=== PATIENT | male | born 1955 | race Caucasian/White ===

== ENCOUNTER 2020-03-08 15:20 | Observation (INO) | payer MEDICARE, OTHER ==
[~2020-03-08] VITALS: Ht 182.9 cm; Wt 90.9 kg
[~2020-03-08 15:20] MED LIST: ALBU18HF2 INH; ASCO-134 PO; FERR325T28 PO; FLO0.4C PO; MONT10TA26 PO; PANT40TA4 PO; TRAM50TA2 PO
[2020-03-08 16:00] LABS: BASOPHILS # (AUTO) 0.1 X10'3 (0-0.2); BASOPHILS % (AUTO) 0.9 % (0-1); EOSINOPHILS # (AUTO) 0.3 X10'3 (0-0.9); EOSINOPHILS % (AUTO) 3.3 % (0-6); HEMATOCRIT 27.4 % (42.0-52.0); HEMOGLOBIN 8.4 g/dl (14.0-17.9); LYMPHOCYTES # (AUTO) 2.1 X10'3 (1.1-4.8); LYMPHOCYTES % (AUTO) 19.8 % (21-51); MEAN CORPUSCULAR HEMOGLOBIN 21.7 PG (27.0-31.0); MEAN CORPUSCULAR HGB CONC 30.6 g/dL (33.0-36.5); MEAN CORPUSCULAR VOLUME 71.1 FL (78-98); MEAN PLATELET VOLUME 6.4 FL (7.4-10.4); MONOCYTES # (AUTO) 1.3 X10'3 (0-0.9); MONOCYTES % (AUTO) 12.3 % (2-12); NEUTROPHILS # (AUTO) 6.7 X10'3 (1.8-7.7); NEUTROPHILS % (AUTO) 63.7 % (42-75); PLATELET COUNT 295 X10'3 (140-440); RED BLOOD COUNT 3.85 X10'6 (4.70-6.10); RED CELL DISTRIBUTION WIDTH 20.8 % (11.5-14.5); WHITE BLOOD COUNT 10.5 X10'3 (4.5-11.0)
[2020-03-08] MEDS ORDERED: nitroGLYCERIN 0.4mg SUBLingual tab SL PRN ×2 (16:10→19:40)
[2020-03-08] MEDS ORDERED: mag hydrox/Alum hydrox/simeth 30ml oral suspension PO ONE (16:10)
[2020-03-08] MEDS ORDERED: LIDOcaine Viscous 15ml cup MM ONE (16:10)
[2020-03-08] MEDS ORDERED: famotidine 20mg tablet PO ONE (16:10)
[2020-03-08 16:26] LABS: ALANINE AMINOTRANSFERASE 30 U/L (12-78); ALBUMIN 3.5 G/DL (3.4-5.0); ALBUMIN/GLOBULIN RATIO 1.2 (1.1-1.5); ALKALINE PHOSPHATASE 77 IU/L (46-116); ANION GAP 7 (8-16); ASPARTATE AMINO TRANSFERASE 16 U/L (10-37); BILIRUBIN,TOTAL 0.6 MG/DL (0.1-1.0); BLOOD UREA NITROGEN 18 MG/DL (7-18); BUN/CREATININE RATIO 17.1 (5.4-32.0); CALCIUM 9.1 MG/DL (8.5-10.1); CHLORIDE 108 MMOL/L (99-107); CREATININE 1.05 MG/DL (0.60-1.10); GLUCOSE 94 MG/DL (70-104); POTASSIUM 3.7 MMOL/L (3.5-5.1); SODIUM 141 MMOL/L (135-145); TOTAL CARBON DIOXIDE 25.6 MMOL/L (24-32); TOTAL PROTEIN 6.5 G/DL (6.4-8.2); eGFR 71 ML/MIN
[2020-03-08] MEDS ORDERED: ondansetron/PF 4mg/2ml inj IV ONE (16:45)
[2020-03-08] MEDS ORDERED: morphine 4 MG/ML inj SYRINge IV ONE ×2 (16:45→17:50)
[2020-03-08] MEDS ORDERED: iohexol 350MG/ML 100ml bottle IV ONE (16:54)
[2020-03-08 17:27] LABS: ANISOCYTOSIS 3+; PLATELET ESTIMATE NORMAL
[2020-03-08 17:30] LABS: HYPOCHROMASIA 3+; MICROCYTOSIS 1+
[2020-03-08 17:31] LABS: POLYCHROMASIA 1+; SCHISTOCYTES FEW
[2020-03-08 17:32] LABS: POIKILOCYTOSIS FEW
[2020-03-08 17:33] LABS: TARGET CELLS FEW
[2020-03-08] MEDS ORDERED: TRAM50TA2 PO (18:22)
[2020-03-08] MEDS ORDERED: ASCO-134 PO (18:22)
[2020-03-08] MEDS ORDERED: PANT-47 PO (18:22)
[2020-03-08] MEDS ORDERED: FERR324T4 PO (18:23)
--- NOTE | 2020-03-08 18:30 | NUR ---
hospitalist DR. Franco at bedside to assess for admission
[2020-03-08] MEDS: normal saline 1000ml 1,000 ML IV SCH ×2 (18:31→20:35)
[2020-03-08] MEDS ORDERED: ondansetron/PF 4mg/2ml inj IV PRN (18:35)
[2020-03-08] MEDS ORDERED: magnesium hydroxide 30ml (MOM) UD suspension PO PRN (18:35)
[2020-03-08] MEDS ORDERED: morphine 2 MG/ML inj. syringe IV PRN ×2 (18:35)
[2020-03-08] MEDS ORDERED: mag hydrox/Alum hydrox/simeth 30ml oral suspension PO PRN (18:35)
[2020-03-08] MEDS ORDERED: acetaminophen 325mg tablet PO PRN (18:35)
--- NOTE | 2020-03-08 19:00 | NUR ---
Patient in room PCU 3013. I have received report from EDGE MOLDER by telephone and had the opportunity to ask questions and assume patient care.
[2020-03-08 19:30] VITALS: BP 153/82
[2020-03-08] MEDS ORDERED: regadenoson 0.4mg/5ml syringe IV ONE (19:40)
[2020-03-08] MEDS ORDERED: albuterol 2.5 MG/3 ML nebule NEB PRN (19:40)
[2020-03-08] MEDS ORDERED: aminophylline 250mg/10ml inj. IV PRN (19:40)
[2020-03-08] MEDS ORDERED: metoprolol tartrate 1mg/ml inj IV PRN (19:40)
[2020-03-08] MEDS: pantoprazole 40mg Tablet.DR PO SCH (20:34)
[2020-03-08] MEDS: ferrous sulfate 325mg tablet PO SCH (20:34)
[2020-03-08 22:00] VITALS: BP 137/79
[2020-03-09] VITALS (15 sets, daily range): BP systolic 127–157; BP diastolic 71–87
--- NOTE | 2020-03-09 02:47 | NUR ---
Refused 0200 vitals signs check.
[2020-03-09 03:34] LABS: BASOPHILS # (AUTO) 0.1 X10'3 (0-0.2); BASOPHILS % (AUTO) 1.7 % (0-1); EOSINOPHILS # (AUTO) 0.3 X10'3 (0-0.9); HEMATOCRIT 23.4 % (42.0-52.0); HEMOGLOBIN 7.2 g/dl (14.0-17.9); LYMPHOCYTES # (AUTO) 1.7 X10'3 (1.1-4.8); LYMPHOCYTES % (AUTO) 25.2 % (21-51); MEAN CORPUSCULAR HGB CONC 30.7 g/dL (33.0-36.5); MEAN CORPUSCULAR VOLUME 71.8 FL (78-98); MEAN PLATELET VOLUME 6.5 FL (7.4-10.4); MONOCYTES % (AUTO) 14.9 % (2-12); NEUTROPHILS # (AUTO) 3.7 X10'3 (1.8-7.7); NEUTROPHILS % (AUTO) 54.2 % (42-75); PLATELET COUNT 217 X10'3 (140-440); RED BLOOD COUNT 3.26 X10'6 (4.70-6.10); RED CELL DISTRIBUTION WIDTH 20.8 % (11.5-14.5); WHITE BLOOD COUNT 6.7 X10'3 (4.5-11.0)
[2020-03-09 03:48] LABS: ALBUMIN 2.8 G/DL (3.4-5.0); ANION GAP 6 (8-16); BLOOD UREA NITROGEN 17 MG/DL (7-18); BUN/CREATININE RATIO 18.1 (5.4-32.0); CALCIUM 8.2 MG/DL (8.5-10.1); CHLORIDE 109 MMOL/L (99-107); CREATININE 0.94 MG/DL (0.60-1.10); GLUCOSE 92 MG/DL (70-104); POTASSIUM 3.9 MMOL/L (3.5-5.1); SODIUM 141 MMOL/L (135-145); TOTAL CARBON DIOXIDE 25.9 MMOL/L (24-32); eGFR 80 ML/MIN
--- NOTE | 2020-03-09 03:54 | NUR ---
PAGER ID: [phone] MESSAGE: [id number] Tu Valera: Hemoglobin 7.2, would you like to put in a standing order to have blood transfused when under 7? Repeat h/h in 4 hrs.? Teresa KAT [id number]
[2020-03-09 04:11] LABS: PLATELET ESTIMATE NORMAL
[2020-03-09 04:12] LABS: ANISOCYTOSIS 3+; MICROCYTOSIS 1+
[2020-03-09 04:13] LABS: HYPOCHROMASIA 2+
--- NOTE | 2020-03-09 06:16 | NUR ---
Problems reprioritized. Patient report given, questions answered & plan of care reviewed with Lluvia KAT.
--- NOTE | 2020-03-09 06:20 | NUR ---
Patient in room PCU 3013. I have received report from NORTH Alvarez and had the opportunity to ask questions and assume patient care.
--- NOTE | 2020-03-09 07:17 | NUR ---
Selinad Salvador PAGER ID: [phone] MESSAGE: [id number]: Tu Velasquez - Hbg went down from 8.4 to 7.2. Would you like a standing order to transfuse blood at 7.0? Repeat H/H q. 4hrs? -Lluvia [phone]
[2020-03-09] MEDS: pantoprazole 40mg Tablet.DR PO SCH ×2 (07:48→19:45)
[2020-03-09] MEDS: montelukast 10mg tablet PO SCH (07:48)
[2020-03-09] MEDS: ferrous sulfate 325mg tablet PO SCH ×3 (07:48→19:45)
[2020-03-09] MEDS: ascorbic acid 500mg tablet PO SCH (07:49)
[2020-03-09] MEDS: tamsulosin 0.4mg capsule PO SCH (07:49)
--- NOTE | 2020-03-09 10:06 | NUR ---
Pt to stress test
--- NOTE | 2020-03-09 13:23 | NUR ---
Patient in room PCU 3013. I have received report from Lluvia and had the opportunity to ask questions and assume patient care.
--- NOTE | 2020-03-09 13:33 | NUR ---
I have reviewed previous nurse's physical assessment and agree with her findings.
--- NOTE | 2020-03-09 13:45 | NUR ---
Problems reprioritized. Patient report given, questions answered & plan of care reviewed with NORTH Huitron.
[2020-03-09] MEDS: traMADol 50MG tablet PO PRN ×2 (14:12→23:32)
[2020-03-09] MEDS: normal saline 1000ml 1,000 ML IV SCH ×2 (14:46→23:32)
[2020-03-09 16:11] LABS: LIPASE 127 U/L (73-393)
[2020-03-09] MEDS: sucralfate 1gm/10ml UD suspension PO SCH ×2 (17:11→19:45)
--- NOTE | 2020-03-09 18:00 | NUR ---
Patient in room PCU 3013. I have received report from Elana KAT and had the opportunity to ask questions and assume patient care.
--- NOTE | 2020-03-09 18:30 | NUR ---
Problems reprioritized. Patient report given, questions answered & plan of care reviewed with Teresa.
--- NOTE | 2020-03-09 23:19 | NUR ---
Refused vital signs for 2200 and 0200. Patient stated, "I do not want to be woken up, I want to sleep."
[2020-03-10 05:26] LABS: BASOPHILS # (AUTO) 0.2 X10'3 (0-0.2); EOSINOPHILS # (AUTO) 0.3 X10'3 (0-0.9); EOSINOPHILS % (AUTO) 3.9 % (0-6); HEMATOCRIT 27.6 % (42.0-52.0); HEMOGLOBIN 8.6 g/dl (14.0-17.9); LYMPHOCYTES # (AUTO) 1.4 X10'3 (1.1-4.8); LYMPHOCYTES % (AUTO) 18.4 % (21-51); MEAN CORPUSCULAR HEMOGLOBIN 22.7 PG (27.0-31.0); MEAN CORPUSCULAR HGB CONC 31.2 g/dL (33.0-36.5); MEAN CORPUSCULAR VOLUME 72.9 FL (78-98); MEAN PLATELET VOLUME 6.7 FL (7.4-10.4); MONOCYTES % (AUTO) 13.5 % (2-12); NEUTROPHILS # (AUTO) 4.8 X10'3 (1.8-7.7); NEUTROPHILS % (AUTO) 62.2 % (42-75); PLATELET COUNT 223 X10'3 (140-440); RED BLOOD COUNT 3.79 X10'6 (4.70-6.10); RED CELL DISTRIBUTION WIDTH 22.1 % (11.5-14.5); WHITE BLOOD COUNT 7.7 X10'3 (4.5-11.0)
[2020-03-10 05:33] LABS: ALBUMIN 2.8 G/DL (3.4-5.0); ANION GAP 6 (8-16); BLOOD UREA NITROGEN 20 MG/DL (7-18); BUN/CREATININE RATIO 21.1 (5.4-32.0); CALCIUM 8.7 MG/DL (8.5-10.1); CHLORIDE 109 MMOL/L (99-107); CREATININE 0.95 MG/DL (0.60-1.10); GLUCOSE 97 MG/DL (70-104); POTASSIUM 4.3 MMOL/L (3.5-5.1); SODIUM 141 MMOL/L (135-145); TOTAL CARBON DIOXIDE 25.9 MMOL/L (24-32); eGFR 79 ML/MIN
--- NOTE | 2020-03-10 06:40 | NUR ---
Patient in room PCU 3013. I have received report from Teresa KAT and had the opportunity to ask questions and assume patient care.
[2020-03-10 06:41] LABS: ANISOCYTOSIS 3+; MICROCYTOSIS 1+; PLATELET ESTIMATE NORMAL; POLYCHROMASIA FEW
--- NOTE | 2020-03-10 06:42 | NUR ---
Problems reprioritized. Patient report given, questions answered & plan of care reviewed with John KAT.
[2020-03-10 06:44] LABS: SCHISTOCYTES FEW
[2020-03-10 07:00] VITALS: BP 146/89
[2020-03-10] MEDS: montelukast 10mg tablet PO SCH (07:54)
[2020-03-10] MEDS: ferrous sulfate 325mg tablet PO SCH (07:54)
[2020-03-10] MEDS: tamsulosin 0.4mg capsule PO SCH (07:54)
[2020-03-10] MEDS: sucralfate 1gm/10ml UD suspension PO SCH ×2 (07:54→11:16)
[2020-03-10] MEDS: pantoprazole 40mg Tablet.DR PO SCH (07:54)
[2020-03-10] MEDS: ascorbic acid 500mg tablet PO SCH (07:54)
[2020-03-10] MEDS ORDERED: SUCR1TAB34 PO (09:57)
[2020-03-10 11:00] VITALS: BP 151/89
[2020-03-10] MEDS: normal saline 1000ml 1,000 ML IV SCH ×2 (11:16→11:17)
--- NOTE | 2020-03-10 12:25 | NUR ---
Patient stable for discharge per MD orders, discharge instructions reviewed with patient, questions answered, appointment set for PCP Dr. Winter for 03/12/20 at 10:30, prescriptions called into [facility] in [place], and tele MD, belongings collected and sent with patient, including cell phone, wheeled to lobby, drove home in personal vehicle.
== END 2020-03-10 12:30 | disposition home or self-care (01) ==
LOC: ER 15:20 → ED HOLD 18:31 → EDBEDREQ 18:49 → PCU 3S 19:15
PROVIDERS: ADMIT Family Medicine; ATTEND Family Medicine
DX: R07.89 Other chest pain (principal); D62 Acute posthemorrhagic anemia; J44.9 Chronic obstructive pulmonary disease, unspecified; K44.9 Diaphragmatic hernia without obstruction or gangrene; I71.4 Abdominal aortic aneurysm, without rupture; N40.0 Benign prostatic hyperplasia without lower urinary tract symptoms; F17.200 Nicotine dependence, unspecified, uncomplicated; F12.10 Cannabis abuse, uncomplicated; Z87.19 Personal history of other diseases of the digestive system; Z87.11 Personal history of peptic ulcer disease; Z90.49 Acquired absence of other specified parts of digestive tract; Z79.899 Other long term (current) drug therapy
CPT/HCPCS: 36415; 36430; 71045; 71275; 78452; 80048; 80053; 83690; 84484; 85025; 86870; 86885; 86900; 86901; 86922; 87081; 93017; 93306; 94760; 96374; 96375; 96376; 99285; A9500; G0378; J2270; J2405; J2785; J7030; P9016; Q9967

== ENCOUNTER 2021-05-22 18:06 | Emergency (ER) | payer MEDICARE, OTHER ==
[~2021-05-22] VITALS: Ht 180.3 cm; Wt 12.7 kg
[~2021-05-22 18:06] MED LIST changes: +FERR324T4 PO; -FERR325T28 PO; -MONT10TA26 PO; +MONT10TA32 PO; +PANT-47 PO; -PANT40TA4 PO; +SUCR1TAB34 PO
--- NOTE | 2021-05-22 19:07 | NUR ---
ULTRA SOUND PAGED [phone]
[2021-05-22 19:21] LABS: BASOPHILS # (AUTO) 0.1 X10'3 (0-0.2); EOSINOPHILS # (AUTO) 0.5 X10'3 (0-0.9); EOSINOPHILS % (AUTO) 6.1 % (0-6); HEMATOCRIT 45.3 % (42.0-52.0); HEMOGLOBIN 15.4 g/dl (14.0-17.9); LYMPHOCYTES # (AUTO) 2.1 X10'3 (1.1-4.8); LYMPHOCYTES % (AUTO) 23.6 % (21-51); MEAN CORPUSCULAR HEMOGLOBIN 30.1 PG (27.0-31.0); MEAN CORPUSCULAR VOLUME 88.5 FL (78-98); MEAN PLATELET VOLUME 6.9 FL (7.4-10.4); MONOCYTES # (AUTO) 0.9 X10'3 (0-0.9); MONOCYTES % (AUTO) 10.2 % (2-12); NEUTROPHILS # (AUTO) 5.2 X10'3 (1.8-7.7); NEUTROPHILS % (AUTO) 59.1 % (42-75); PLATELET COUNT 327 X10'3 (140-440); RED BLOOD COUNT 5.13 X10'6 (4.70-6.10); RED CELL DISTRIBUTION WIDTH 12.8 % (11.5-14.5); WHITE BLOOD COUNT 8.8 X10'3 (4.5-11.0)
[2021-05-22 19:34] LABS: ALANINE AMINOTRANSFERASE 39 U/L (12-78); ALBUMIN 3.5 G/DL (3.4-5.0); ALBUMIN/GLOBULIN RATIO 1.1 (1.1-1.5); ALKALINE PHOSPHATASE 60 IU/L (46-116); ANION GAP 11 (8-16); BILIRUBIN,TOTAL 0.4 MG/DL (0.1-1.0); BLOOD UREA NITROGEN 29 MG/DL (7-18); BUN/CREATININE RATIO 22.7 (5.4-32.0); CALCIUM 8.6 MG/DL (8.5-10.1); CHLORIDE 107 MMOL/L (99-107); CREATININE 1.28 MG/DL (0.60-1.10); MAGNESIUM 2.4 MG/DL (1.5-2.4); SODIUM 139 MMOL/L (135-145); TOTAL CARBON DIOXIDE 21.2 MMOL/L (24-32); TOTAL PROTEIN 6.6 G/DL (6.4-8.2); TROPONIN I < 0.04 NG/ML (0.0-0.05); eGFR 56 ML/MIN
[2021-05-22 19:38] LABS: GLUCOSE 110 MG/DL (70-104); POTASSIUM 4.1 MMOL/L (3.5-5.1)
[2021-05-22 19:45] LABS: ASPARTATE AMINO TRANSFERASE 28 U/L (10-37)
[2021-05-22 20:39] VITALS: BP 142/83
== END 2021-05-22 20:44 | disposition home or self-care (01) ==
LOC: ER 18:09
DX: R10.12 Left upper quadrant pain (principal); K44.9 Diaphragmatic hernia without obstruction or gangrene; R10.13 Epigastric pain; R07.89 Other chest pain; J44.9 Chronic obstructive pulmonary disease, unspecified; K21.9 Gastro-esophageal reflux disease without esophagitis; F17.200 Nicotine dependence, unspecified, uncomplicated; F12.90 Cannabis use, unspecified, uncomplicated; Z79.899 Other long term (current) drug therapy
CPT/HCPCS: 36415; 71046; 76705; 76881; 76882; 80053; 83735; 83880; 84484; 85025; 93005; 99285

== ENCOUNTER 2021-07-23 08:20 | Inpatient (IN) | payer MEDICARE, OTHER ==
[2021-07-17 10:55] LABS: BASOPHILS # (AUTO) 0.1 X10'3 (0-0.2); BASOPHILS % (AUTO) 1.2 % (0-1); EOSINOPHILS # (AUTO) 0.4 X10'3 (0-0.9); LYMPHOCYTES # (AUTO) 1.9 X10'3 (1.1-4.8); LYMPHOCYTES % (AUTO) 26.5 % (21-51); MEAN CORPUSCULAR HEMOGLOBIN 29.3 PG (27.0-31.0); MEAN CORPUSCULAR HGB CONC 33.4 g/dL (33.0-36.5); MEAN CORPUSCULAR VOLUME 87.9 FL (78-98); MEAN PLATELET VOLUME 6.8 FL (7.4-10.4); MONOCYTES # (AUTO) 0.7 X10'3 (0-0.9); MONOCYTES % (AUTO) 10.3 % (2-12); NEUTROPHILS # (AUTO) 4.1 X10'3 (1.8-7.7); PRE OP PLATELET COUNT 331 X10'3 (140-440); RED BLOOD COUNT 5.46 X10'6 (4.70-6.10); RED CELL DISTRIBUTION WIDTH 13.1 % (11.5-14.5)
[2021-07-17 11:11] LABS: ALBUMIN 3.9 G/DL (3.4-5.0); ALBUMIN/GLOBULIN RATIO 1.3 (1.1-1.5); ALKALINE PHOSPHATASE 72 IU/L (46-116); BLOOD UREA NITROGEN 21 MG/DL (7-18); BUN/CREATININE RATIO 19.8 (5.4-32.0); CALCIUM 9.4 MG/DL (8.5-10.1); CHLORIDE 107 MMOL/L (99-107); CREATININE 1.06 MG/DL (0.60-1.10); PRE OP ALT 44 U/L (30-65); PRE OP ANION GAP 8 (8-16); PRE OP AST 21 U/L (10-37); PRE OP BILIRUB, TOTAL 0.8 MG/DL (0.0-1.0); PRE OP GLUCOSE 90 MG/DL (70-104); PRE OP POTASSIUM 4.5 MMOL/L (3.4-5.1); PRE OP SODIUM 142 MMOL/L (135-145); TOTAL CARBON DIOXIDE 27.3 MMOL/L (24-32); eGFR 70 ML/MIN
[~2021-07-23] VITALS: Ht 182.9 cm; Wt 89.8 kg
[2021-07-23] VITALS (22 sets, daily range): BP systolic 118–154; BP diastolic 65–98
[~2021-07-23 08:20] MED LIST changes: -ALBU18HF2 INH; -ASCO-134 PO; +BUPIVAcaine 0.5% inj/PF 30 ML ONE; -FERR324T4 PO; -FLO0.4C PO; +LIDOcaine 1% 30ml preserv. free vial ONE; -MONT10TA32 PO; +NO HOME MEDS; -PANT-47 PO; -SUCR1TAB34 PO; -TRAM50TA2 PO; +albuterol 2.5 MG/3 ML nebule NEB ONE; +cefazolin/dext.iso 2gm/100ml IV ONE; +diatr meglu/diatrizoate 30ml oral sol.-(3 dose) bottle ONE; +famotidine 20mg tablet PO ONE; +ringers solution, lacted 1,000 ML IV SCH
[2021-07-23] MEDS ORDERED: proCHLORperazine 10 MG/2 ml inj IV PRN (10:55)
[2021-07-23] MEDS ORDERED: morphine 2 MG/ML inj. syringe IV PRN (10:55)
[2021-07-23] MEDS ORDERED: morphine 4 MG/ML inj SYRINge IV PRN (10:55)
[2021-07-23] MEDS ORDERED: ondansetron/PF 4mg/2ml inj IV PRN ×2 (10:55→14:00)
[2021-07-23] MEDS ORDERED: ringers solution, lacted 1,000 ML IV SCH (10:55)
[2021-07-23] MEDS ORDERED: meperidine/PF 25mg/ml syringe IV PRN ×2 (10:55)
[2021-07-23] MEDS ORDERED: ePHEDrine 50MG/ML INJ. ONE (11:03)
[2021-07-23] MEDS ORDERED: sevoflurane 250ml liquid IH ONE (11:03)
[2021-07-23] MEDS ORDERED: hydrALAZINE 20mg/ml inj. IV ONE (11:03)
[2021-07-23] MEDS ORDERED: fentaNYL/PF 50MCG/1 ML 2ML syringe ONE ×2 (11:05→11:33)
[2021-07-23] MEDS ORDERED: midazolam 1 mg/ML 2ml injection ONE (11:05)
[2021-07-23] MEDS ORDERED: dexamethasone sod phosphate 4mg/ml inj. ONE (13:29)
[2021-07-23] MEDS ORDERED: acetaminophen 1,000mg/100ml IV 100 ML IV ONE (13:29)
[2021-07-23] MEDS ORDERED: rocuronium 10mg/ml inj IV ONE (13:29)
[2021-07-23] MEDS ORDERED: propofol inj 20 ML IV ONE (13:29)
[2021-07-23] MEDS ORDERED: LIDOcaine 2% (20mg/ml) 5ml vial ONE (13:29)
[2021-07-23] MEDS ORDERED: ondansetron/PF 4mg/2ml inj ONE (13:29)
[2021-07-23] MEDS ORDERED: meperidine/PF 25mg/ml syringe ONE ×2 (13:49→13:58)
[2021-07-23] MEDS ORDERED: sugammadex 200mg/2ml injection IV ONE (13:55)
--- NOTE | 2021-07-23 13:58 | NUR ---
Received from OR via BED, accompanied by Anesthesiologist DR VASQUES and report given by Anesthesiolgist AND PLASTIC MANAGER. PT DROWSY, PAINFUL, ABDOMEN W/4 LAP SITES W/DERMABOND CDI, MID SUPERIOR LAP SITE W/SCANT AMT OF BLOODY DRAINAGE. PAIN MEDICATION GIVEN BY DR VASQUES W/DONNA RELIEF. Addendum: 07/23/21 at 1436 by Shania Valdivia RN Amended: Links added.
[2021-07-23] MEDS: acetaminophen 325mg tablet PO SCH ×2 (14:00→19:40)
[2021-07-23] MEDS ORDERED: glycopyrrolate 0.2mg/ml inj ONE (14:18)
[2021-07-23] MEDS ORDERED: neostigmine methylsulfate 1 MG/ML 10ml vial ONE (14:18)
[2021-07-23] MEDS ORDERED: labetalol 20mg/4ml (5mg/ml) syringe IV ONE (14:18)
[2021-07-23] MEDS ORDERED: phenylephrine 10mg/ml inj. ONE (14:18)
[2021-07-23] MEDS: meperidine/PF 25mg/ml syringe IV PRN ×3 (14:36→16:03)
--- NOTE | 2021-07-23 16:18 | NUR ---
Report called to receiving nurse. PAIN MEDICATION GIVEN FOR LEFT SHOULDER PAIN 05/11 AND EPIGASTRIC PAIN 02/09. Transferred via BED, 2 BAGS OF Belongings SENT W/PT TO ROOM 350B, RECEIVING RN AT BEDSIDE TO RECEIVE PT, BLL, CALL LIGHT GIVEN, SIDE RAILS UP X 2. Special Issues communicated to receiving nurse. YES. Addendum: 07/23/21 at 1633 by Shania Valdviia RN Amended: Links added.
--- NOTE | 2021-07-23 16:30 | NUR ---
Received patient to room 350B via bed accompanied by x2 staff. Patient sleeping but easily arouses to voice. Patient received pain med prior to transferring to room. No complaints from patient. x3 lapsites with Dermabond CDI. x2 belongings bag placed in closet. Oriented patient to room and call light. Bed low and locked, x2 side rails up, scd's on, call light placed within reach. Post op vitals initiated VSS. Will continue to monitor.
[2021-07-23] MEDS: HYDROmorphone inj. 0.5 MG/0.5 ML DISP.SYRIN IV PRN ×2 (17:01→21:36)
--- NOTE | 2021-07-23 18:48 | NUR ---
Problems reprioritized. Patient report given, questions answered & plan of care reviewed with NORTH Maynard.
--- NOTE | 2021-07-23 18:51 | NUR ---
Patient in room JEANNINE 350. I have received report from ALEXI KAT and had the opportunity to ask questions and assume patient care.
[2021-07-23] MEDS: HYDROcodone/acetaminophen 5mg/325mg tablet PO PRN ×2 (19:00→23:04)
[2021-07-23] MEDS: Potassium Cl inj 20 MEQ in ringers solution, lacted 1,000 ML IV SCH ×2 (19:03→22:05)
[2021-07-23] MEDS: heparin, porcine 5000 units/ml vial SQ SCH (21:38)
[2021-07-24] VITALS: BP 135/81
[2021-07-24] MEDS: acetaminophen 325mg tablet PO SCH ×3 (02:00→14:00)
[2021-07-24] MEDS: HYDROmorphone inj. 0.5 MG/0.5 ML DISP.SYRIN IV PRN ×3 (02:18→11:26)
[2021-07-24] MEDS: Potassium Cl inj 20 MEQ in ringers solution, lacted 1,000 ML IV SCH ×2 (04:52→14:59)
[2021-07-24] MEDS: HYDROcodone/acetaminophen 5mg/325mg tablet PO PRN ×4 (04:53→17:45)
[2021-07-24 06:25] LABS: BASOPHILS % (AUTO) 0.1 % (0-1); EOSINOPHILS % (AUTO) 0.1 % (0-6); HEMATOCRIT 41.4 % (42.0-52.0); HEMOGLOBIN 14.1 g/dl (14.0-17.9); LYMPHOCYTES % (AUTO) 8.1 % (21-51); MEAN CORPUSCULAR HEMOGLOBIN 30.4 PG (27.0-31.0); MEAN CORPUSCULAR HGB CONC 34.1 g/dL (33.0-36.5); MEAN CORPUSCULAR VOLUME 89.3 FL (78-98); MONOCYTES # (AUTO) 1.4 X10'3 (0-0.9); MONOCYTES % (AUTO) 11.5 % (2-12); NEUTROPHILS # (AUTO) 9.6 X10'3 (1.8-7.7); NEUTROPHILS % (AUTO) 80.2 % (42-75); PLATELET COUNT 275 X10'3 (140-440); RED BLOOD COUNT 4.64 X10'6 (4.70-6.10)
--- NOTE | 2021-07-24 06:30 | NUR ---
Problems reprioritized. Patient report given, questions answered & plan of care reviewed with ALEXI KAT.
--- NOTE | 2021-07-24 06:34 | NUR ---
Patient in room JEANNINE 350. I have received report from NORTH SHIPLEY and had the opportunity to ask questions and assume patient care.
[2021-07-24 06:38] LABS: ALBUMIN 3.3 G/DL (3.4-5.0); ANION GAP 7 (8-16); BLOOD UREA NITROGEN 16 MG/DL (7-18); CALCIUM 8.9 MG/DL (8.5-10.1); CHLORIDE 104 MMOL/L (99-107); GLUCOSE 131 MG/DL (70-104); POTASSIUM 4.4 MMOL/L (3.5-5.1); SODIUM 137 MMOL/L (135-145); TOTAL CARBON DIOXIDE 25.6 MMOL/L (24-32); eGFR 75 ML/MIN
[2021-07-24 07:00] VITALS: BP 167/85
--- NOTE | 2021-07-24 09:32 | NUR ---
Dr Anna aware patient has not had esophagram done yet as tremaine Moreira stated radiologist is busy and attempted to get another radiologist in. Dr Anna ok with it and stated to make sure tremaine canchola aware to use gastroview and not barium for the study. Will let tremaine Moreira know.
--- NOTE | 2021-07-24 10:22 | NUR ---
Patient down to radiology for esophagram.
--- NOTE | 2021-07-24 10:40 | NUR ---
Patient back to room. Encouraged to ambulate. Will continue to monitor.
[2021-07-24 11:00] VITALS: BP 159/80
--- NOTE | 2021-07-24 12:19 | NUR ---
Nutrition Consult: Pt s/p blake fundoplication, provided pt w/ written and verbal blake diet education w/ RD contact info. Pt receptive of information. Will continue to monitor. Addendum: 07/24/21 at [address] Amended: Links added.
[2021-07-24] MEDS: heparin, porcine 5000 units/ml vial SQ SCH (12:42)
[2021-07-24] MEDS ORDERED: OXYC-145 PO (17:21)
--- NOTE | 2021-07-24 18:39 | NUR ---
Problems reprioritized. Patient report given, questions answered & plan of care reviewed with NORTH Drake. Patient waiting to see Dr. Anna prior to dc.
--- NOTE | 2021-07-24 19:15 | NUR ---
Discharged home with sister to drive. D/C'd 20g PIV R hand cannula intact. Pt verbalizes understanding of discharge instructions. Pain medication called to [facility] [address]. T98.9 P64 R14 96% on RA B/P 159/91.
== END 2021-07-24 19:15 | disposition home or self-care (01) | DRG 328 ==
LOC: PAS IN 08:20 → SUR 3N 14:02
PROVIDERS: ADMIT Surgery; ATTEND Surgery
PROC: 0DV44ZZ Restriction of Esophagogastric Junction, Percutaneous Endoscopic Approach (ICD-10-PCS; 2021-07-23)
PROC: 8E0W4CZ Robotic Assisted Procedure of Trunk Region, Percutaneous Endoscopic Approach (ICD-10-PCS; 2021-07-23)
PROC: 0BQT4ZZ Repair Diaphragm, Percutaneous Endoscopic Approach (ICD-10-PCS; principal; 2021-07-23 11:03)
DX: K44.9 Diaphragmatic hernia without obstruction or gangrene (principal); Z20.822 Contact with and (suspected) exposure to COVID-19; K21.9 Gastro-esophageal reflux disease without esophagitis; M47.812 Spondylosis without myelopathy or radiculopathy, cervical region; F32.9 Major depressive disorder, single episode, unspecified; F41.9 Anxiety disorder, unspecified; J44.9 Chronic obstructive pulmonary disease, unspecified; N40.0 Benign prostatic hyperplasia without lower urinary tract symptoms; Z87.891 Personal history of nicotine dependence; Z90.49 Acquired absence of other specified parts of digestive tract; Z82.49 Family history of ischemic heart disease and other diseases of the circulatory system; Z83.3 Family history of diabetes mellitus; Z82.3 Family history of stroke
CPT/HCPCS: 36415; 71045; 74220; 80048; 80053; 82948; 85025; 87081; 94640; 94760; A4618; C9399; G0378; J0131; J0360; J1100; J1170; J1644; J2001; J2175; J2250; J2370; J2405; J2704; J2710; J3010; J3480; J3490; J7120; Q9963; U0003; U0005

== ENCOUNTER 2023-05-09 09:56 | Emergency (ER) | payer MEDICARE, OTHER ==
[~2023-05-09] VITALS: Ht 182.9 cm; Wt 93.0 kg
[~2023-05-09 09:56] MED LIST changes: -BUPIVAcaine 0.5% inj/PF 30 ML ONE; -LIDOcaine 1% 30ml preserv. free vial ONE; +OXYC-145 PO; -albuterol 2.5 MG/3 ML nebule NEB ONE; -cefazolin/dext.iso 2gm/100ml IV ONE; -diatr meglu/diatrizoate 30ml oral sol.-(3 dose) bottle ONE; -famotidine 20mg tablet PO ONE; -ringers solution, lacted 1,000 ML IV SCH
[2023-05-09 10:32] VITALS: BP 153/101
[2023-05-09] MEDS ORDERED: TRAM50TA2 PO (11:01)
[2023-05-09] MEDS ORDERED: AMOX-580 PO (11:01)
== END 2023-05-09 11:16 | disposition home or self-care (01) ==
LOC: ER 09:57
DX: K08.89 Other specified disorders of teeth and supporting structures (principal); J44.9 Chronic obstructive pulmonary disease, unspecified; K21.9 Gastro-esophageal reflux disease without esophagitis; F12.10 Cannabis abuse, uncomplicated; E11.9 Type 2 diabetes mellitus without complications; Z79.899 Other long term (current) drug therapy
CPT/HCPCS: 99283

== ENCOUNTER 2024-09-13 14:29 | Emergency (ER) | payer MEDICARE, OTHER ==
[~2024-09-13] VITALS: Ht 182.9 cm; Wt 91.7 kg
[2024-09-13] MEDS ORDERED: BUPIVAcaine 2.5mg/ml inj 50ml vial (contains preservative) ONE (15:41)
[2024-09-13] MEDS ORDERED: LIDOcaine 1% w/EPI 1:100,000 inj. MDV 50 ML VIAL ONE (15:41)
[2024-09-13] MEDS: ketorolac trometh 30MG/ML vial 30 MG/ML VIAL IM ONE (16:06)
[2024-09-13 16:17] VITALS: BP 126/76; PULSE 72; RESP 16; TEMP 98.1; O2SAT 98
== END 2024-09-13 16:19 | disposition home or self-care (01) ==
LOC: ER 14:29
DX: M79.672 Pain in left foot (principal); J44.9 Chronic obstructive pulmonary disease, unspecified; K21.9 Gastro-esophageal reflux disease without esophagitis; F12.90 Cannabis use, unspecified, uncomplicated
CPT/HCPCS: 73630; 96372; 99283; J1885; J3490; L4360

== ENCOUNTER 2025-03-26 16:43 | Emergency (ER) | payer MEDICARE, OTHER ==
[~2025-03-26] VITALS: Ht 182.9 cm; Wt 92.6 kg
--- NOTE | 2025-03-26 17:16 | RADIOLOGY REPORT ---
CHEST RADIOGRAPH Indication: sepsis alert Technique: Single frontal view of the chest was obtained Comparison: CHEST,SINGLE VIEW on DOS: 07/23/21, CHEST,SINGLE VIEW on DOS: 03/08/20, CHEST,SINGLE VIEW on DOS: 03/06/20 FINDINGS: Lines and Tubes: None Lungs: Mild interstitial prominence. Hazy opacification of the lung bases. Pleura: No effusion. No pneumothorax. Cardiomediastinal contours: Unremarkable Bones: No acute osseous abnormality. IMPRESSION: Mild pulmonary vascular congestion. Hazy opacification of the lung bases which may be from overlying soft tissues with bibasilar atelectasis not excluded.
[2025-03-26 17:51] LABS: BASOPHILS # (AUTO) 0.1 X10'3 (0-0.2); BASOPHILS % (AUTO) 0.5 % (0-1); EOSINOPHILS # (AUTO) 0.2 X10'3 (0-0.9); EOSINOPHILS % (AUTO) 1.3 % (0-6); HEMATOCRIT 45.4 % (42.0-52.0); HEMOGLOBIN 15.2 g/dl (14.0-17.9); LYMPHOCYTES # (AUTO) 1.4 X10'3 (1.1-4.8); LYMPHOCYTES % (AUTO) 9.3 % (21-51); MEAN CORPUSCULAR HGB CONC 33.4 g/dL (33.0-36.5); MEAN CORPUSCULAR VOLUME 86.9 FL (78-98); MEAN PLATELET VOLUME 6.8 FL (7.4-10.4); MONOCYTES # (AUTO) 1.3 X10'3 (0-0.9); MONOCYTES % (AUTO) 9.2 % (2-12); NEUTROPHILS # (AUTO) 11.6 X10'3 (1.8-7.7); NEUTROPHILS % (AUTO) 79.7 % (42-75); PLATELET COUNT 431 X10'3 (140-440); RED BLOOD COUNT 5.23 X10'6 (4.70-6.10); RED CELL DISTRIBUTION WIDTH 12.9 % (11.5-14.5); WHITE BLOOD COUNT 14.5 X10'3 (4.5-11.0)
[2025-03-26 17:58] LABS: ALBUMIN 3.4 G/DL (3.4-5.0); ANION GAP 9 (8-16); BLOOD UREA NITROGEN 16 MG/DL (7-18); BUN/CREATININE RATIO 13.4 (10.0-20.0); CHLORIDE 106 MMOL/L (99-107); CREATININE 1.19 MG/DL (0.60-1.10); GLUCOSE 116 MG/DL (70-104); POTASSIUM 3.9 MMOL/L (3.5-5.1); SODIUM 141 MMOL/L (135-145); eCRCL 62 ML/MIN; eGFR 60 ML/MIN
[2025-03-26] MEDS: ipratropium/albuterol 3ml nebule NEB ONE (21:12)
--- NOTE | 2025-03-26 21:12 | Physician Documentation ---
History of Present Illness ~ General Chief Complaint: Multiple Medical Complaints Stated Complaint: NIGHT SWEATS, BLURRED VISION BONES ACHE FOR 2 WEEK Time Seen by MD: 20:46 Primary Medical Doctor: [facility] History of Present Illness Initial Comments PATIENT PRESENTS WITH A A COMPLAINT OF INCREASED WEAKNESS OVER THE LAST MONTH. STATES HE HAS A PREVIOUS CIGARETTE SMOKER AND HAS NEVER BEEN DIAGNOSED WITH COPD. STATES THAT HE HAD HAD A HEADACHE AND GENERAL MALAISE. DENIES ANY CHEST PAIN Medication Reconciliation Allergies: Coded Allergies: No Known Allergies (Unverified , 09/13/24) Scheduled PRN Oxycodone HCl/Acetaminophen (Percocet 5-325 mg Tablet), 1 TAB PO QID PRN PRN for pain Miscellaneous Medications Home Med List (No Home Medications), (Reported) Past Medical History Past Medical History: COPD, GERD, Hemorrhoids Past Surgical History: noncontributory Other Past Family History: Heart disease, diabetes Drug Use: marijuana Lives In: Home Occupation: employed Review of Systems All Other Systems at this time: Reviewed and Negative ROS As stated above in the HPI, otherwise all systems are reviewed and negative. Physical Exam Physical Exam Vital Signs: Temperature: 100.9, Source: Oral, Heart Rate: 102, Respiratory Rate: 16, BP: 160/106, Pulse Oximetry: 94, Weight: 92.600 Oxygen Flow Rate: 0 Physical Exam General: Alert, no apparent distress. HEENT: PERRL, EOMI, no injection, moist mucous membranes. Respiratory: Lungs clear, no respiratory distress. Cardiovascular: Regular rate and rhythm, no murmurs. Gastrointestinal: Soft, nontender, nondistended. Bowels sounds present. Neurologic: Oriented x4. Psychiatric: Normal mood and affect. Skin: Normal color, warm and dry. No edema, no ecchymosis. Progress Results/Orders Results/Orders Orders - CORBY DEL ANGEL NP Svn Treatment (03/26/25 ) Completed Orders - CORBY DEL ANGEL NP Ipratropium/Albuterol Nebule (Ipratrop/A (03/26/25 21:10) Acetaminophen 325mg Tablet (Tylenol Tabl (03/26/25 21:45) Medications Received in ER Medications (Trade) Dose Ordered Sig/Fariba Route PRN Reason Start Time Stop Time Status Last Admin Dose Admin (ipratrop/ albuterol 0.5-3(2.5) MG/3ml nebule) 3 ml ONCE ONCE NEB 03/26/25 21:10 03/26/25 21:11 DC 03/26/25 21:12 3 ML Vital Signs 03/26/25 03/26/25 03/26/25 03/26/25 16:49 19:46 21:13 21:18 Temp 100.2 100.9 Pulse 96 102 93 100 Resp 16 16 18 16 B/P (MAP) 186/102 160/106 (124) Pulse Ox 94 94 93 O2 Delivery Room Air* Room Air* O2 Flow Rate 0 0 0 0 FiO2 21 21 03/26/25 03/26/25 21:19 21:19 Temp 100.5 Pulse 108 Resp 14 17 B/P (MAP) 145/92 (109) Pulse Ox 93 O2 Flow Rate 0 Laboratory Tests Test 03/26/25 17:14 03/26/25 20:50 White Blood Count 14.5 H Red Blood Count 5.23 Hemoglobin 15.2 Hematocrit 45.4 Mean Corpuscular Volume 86.9 Mean Corpuscular Hemoglobin 29.0 Mean Corpuscular Hemoglobin Concent 33.4 Red Cell Distribution Width 12.9 Platelet Count 431 Mean Platelet Volume 6.8 L Neutrophils (%) (Auto) 79.7 H Lymphocytes (%) (Auto) 9.3 L Monocytes (%) (Auto) 9.2 Eosinophils (%) (Auto) 1.3 Basophils (%) (Auto) 0.5 Neutrophils # (Auto) 11.6 H Lymphocytes # (Auto) 1.4 Monocytes # (Auto) 1.3 H Eosinophils # (Auto) 0.2 Basophils # (Auto) 0.1 CBC Comment Sodium Level 141 Potassium Level 3.9 Chloride Level 106 Carbon Dioxide Level 26.0 Anion Gap 9 Blood Urea Nitrogen 16 Creatinine 1.19 H Estimated GFR/1.73 m2 60 BUN/Creatinine Ratio 13.4 Glucose Level 116 H Lactic Acid Level 1.2 Calcium Level 9.0 Albumin 3.4 Procalcitonin 0.24 Chemistry Comments Urine Specimen Description Cln catch midstream Urine Color Yellow Urine Clarity Clear Urine pH 6.0 Urine Specific Gibbon 1.015 Urine Protein Negative Urine Glucose (UA) Negative Urine Ketones Trace H Urine Occult Blood Trace-intact Urine Nitrite Negative Urine Bilirubin Negative Urine Urobilinogen 0.2 Urine Leukocyte Esterase Negative Urine RBC None seen Urine WBC 0-4 Urine Squamous Epithelial Cells Few Urine Bacteria None seen Urine Mucus Few Urine Culture Indicated Not ind Volume Urine Centrifuged 10 ml Urine Comment Microbiology Date/Time Source Procedure Growth Status 03/26/25 17:14 Blood Arm Right Blood Culture - Preliminary NEGATIVE (LESS THAN 24 HOURS) Resulted Medical Decision Making Findings A GAVE PATIENT AN SVN TREATMENT WHILE IN THE ED WITH ONLY MILD MOVEMENT. HIS LABORATORY VALUES ARE VERY REASSURING AT A DO NOT SEE ANY REASON TO PURSUE FURTHER IMAGING AT THIS TIME. HIS VITALS ARE REASSURING IN HIS OVERALL PRESENTATION DOES NOT PRESENT TOXIC APPEARING IN HIS HEMODYNAMICALLY STABLE. GOING TO DISCHARGE HIM FOR OUTPATIENT EVALUATION AT THIS TIME. Departure Disposition: HOME / SELF CARE / HOMELESS Impression: Primary Impression: Cough Additional Impression: Fever Condition: Stable Discharge Instructions: Cough, Adult, [id number] Referrals: NO PRIMARY CARE PROVIDER (PCP) Education Educated: Patient Educated regarding: diagnosis Signature Scribe Signature: R Attestation: The note accurately reflects work and decisions made by me.Corby Newman NP 03/26/25 21:08 CORBY DEL ANGEL NP March 26, 2025 21:12
[2025-03-26 21:13] VITALS: PULSE 93; RESP 18; O2SAT 93
[2025-03-26 21:18] VITALS: PULSE 100; RESP 16
[2025-03-26 21:19] VITALS: BP 145/92; PULSE 108; RESP 14; O2SAT 93
[2025-03-26 21:42] LABS: BILIRUBIN,URINE NEGATIVE (Neg); CLARITY,URINE CLEAR (Clear); COLOR,URINE YELLOW (Yellow); GLUCOSE, URINE NEGATIVE (Neg); KETONES,URINE TRACE mg/dl (Neg); LEUKOCYTE ESTERASE ,URINE NEGATIVE (Neg); NITRITES, URINE NEGATIVE (Neg); OCCULT BLOOD,URINE TRACE-INTACT (Neg); PROTEIN,URINE NEGATIVE (Neg); UROBILINOGEN,URINE 0.2 E.U/dL (0.2-1.0)
[2025-03-26 21:44] LABS: UA COLLECTION TYPE CLN CATCH MIDSTREAM
[2025-03-26 21:54] LABS: BACTERIA,URINE NONE SEEN /HPF (Neg); MUCUS STRANDS FEW /LPF (Neg); RBC,URINE NONE SEEN /HPF (0-2); SQUAMOUS EPITHELIAL CELL,UR FEW /LPF (FEW); WBC,URINE 0-4 /HPF (0-4)
[2025-03-26] MEDS: acetaminophen 325mg tablet PO ONE (22:07)
[2025-03-26 22:09] VITALS: TEMP 100.5
== END 2025-03-26 22:11 | disposition home or self-care (01) ==
LOC: ER 16:44
DX: R05.9 Cough, unspecified (principal); R50.9 Fever, unspecified; J44.9 Chronic obstructive pulmonary disease, unspecified; K21.9 Gastro-esophageal reflux disease without esophagitis; Z87.891 Personal history of nicotine dependence
CPT/HCPCS: 36415; 71045; 80048; 81001; 83605; 84145; 85025; 87040; 94640; 94760; 99284